=== PATIENT | female | born 1975 | race Caucasian/White ===

== ENCOUNTER 2016-08-03 19:00 | Emergency (ER) | payer MEDICAID, OTHER ==
[~2016-08-03] VITALS: Ht 172.7 cm; Wt 91.0 kg
[~2016-08-03 19:00] MED LIST: GABA-531 PO; GLIP5 PO; METF1000 PO; TNFMISC
[2016-08-03 19:36] LABS: GLUCOSE,POINT OF CARE 412 MG/DL (70-110)
[2016-08-03 19:40] LABS: BASOPHILS % (AUTO) 0.6 % (0.0-2.0); EOSINOPHILS % (AUTO) 1.9 % (1.0-6.0); HEMATOCRIT 39.1 % (36-46); HEMOGLOBIN 13.6 g/dL (12.0-16.0); LYMPHOCYTES # (AUTO) 2.8 K/uL (1.0-4.8); LYMPHOCYTES % (AUTO) 40.4 % (22.0-44.0); MEAN CORPUSCULAR HEMOGLOBIN 31.6 pg (26.0-34.0); MEAN CORPUSCULAR HGB CONC 34.8 G/dL (31.0-37.0); MEAN CORPUSCULAR VOLUME 91 fL (80-100); MONOCYTES # (AUTO) 0.5 K/uL (0.1-1.0); MONOCYTES % (AUTO) 7.4 % (2.0-9.0); NEUTROPHILS # (AUTO) 3.4 K/uL (1.8-7.7); NEUTROPHILS % (AUTO) 49.7 % (40.0-70.0); PLATELET COUNT (AUTO) 183 K/uL (150-450); RED BLOOD CELL COUNT(AUTO) 4.31 MIL/uL (4.00-5.20); RED CELL DISTRIBUTION WIDTH 12.6 % (11.5-14.5); WHITE BLOOD COUNT (AUTO) 6.9 K/uL (4.5-11.0)
[2016-08-03 19:56] LABS: ALANINE AMINOTRANSFERASE 30 U/L (12-78); ALBUMIN 3.1 g/dL (3.4-5.0); ANION GAP 10 mmol/L (8-16); ASPARTATE AMINOTRANSFERASE 19 U/L (15-37); BILIRUBIN,TOTAL 0.6 mg/dL (0.1-1.0); CALCIUM, TOTAL 8.5 mg/dL (8.8-10.5); CARBON DIOXIDE 26 mmol/L (22-29); CHLORIDE 100 mmol/L (98-107); CREATININE 0.72 mg/dL (0.60-1.30); GLOMERULAR FILTR. RATE CALC > 60 mL/min (>60); POTASSIUM 3.5 mmol/L (3.5-5.1); SODIUM SERUM 136 mmol/L (136-145); TOTAL PROTEIN, SERUM 6.8 g/dL (6.4-8.2); UREA NITROGEN, BLOOD 7 mg/dL (7-18)
[2016-08-03] MEDS ORDERED: INSULIN REGULAR, HUMAN 100 UNITS/ML SQ ONE (20:30)
[2016-08-03 22:07] LABS: GLUCOSE COMMENT 1 Doctor Notified; GLUCOSE,POINT OF CARE 432 MG/DL (70-110)
[2016-08-03 22:46] VITALS: BP 125/73
[2016-08-03 23:02] LABS: GLUCOSE COMMENT 1 Doctor Notified; GLUCOSE,POINT OF CARE 355 MG/DL (70-110)
== END 2016-08-03 22:54 | disposition home or self-care (01) ==
LOC: EMS 19:01
DX: E11.65 Type 2 diabetes mellitus with hyperglycemia (principal); R53.1 Weakness; M79.671 Pain in right foot; M79.672 Pain in left foot; E78.00 Pure hypercholesterolemia, unspecified
CPT/HCPCS: 36415; 71010; 80053; 82962; 84484; 85025; 93005; 96372; 99285; J1815

== ENCOUNTER 2016-10-05 16:29 | Emergency (ER) | payer OTHER ==
[~2016-10-05] VITALS: Ht 157.5 cm; Wt 90.0 kg
[2016-10-05 16:47] LABS: GLUCOSE,POINT OF CARE 399 MG/DL (70-110)
[2016-10-05 16:57] LABS: BASOPHILS % (AUTO) 0.6 % (0.0-2.0); HEMATOCRIT 40.4 % (36-46); HEMOGLOBIN 14.2 g/dL (12.0-16.0); LYMPHOCYTES % (AUTO) 36.4 % (22.0-44.0); MEAN CORPUSCULAR HEMOGLOBIN 31.6 pg (26.0-34.0); MEAN CORPUSCULAR VOLUME 90 fL (80-100); MONOCYTES # (AUTO) 0.6 K/uL (0.1-1.0); MONOCYTES % (AUTO) 6.9 % (2.0-9.0); NEUTROPHILS # (AUTO) 4.4 K/uL (1.8-7.7); NEUTROPHILS % (AUTO) 53.1 % (40.0-70.0); PLATELET COUNT (AUTO) 180 K/uL (150-450); RED BLOOD CELL COUNT(AUTO) 4.48 MIL/uL (4.00-5.20); RED CELL DISTRIBUTION WIDTH 11.5 % (11.5-14.5); WHITE BLOOD COUNT (AUTO) 8.2 K/uL (4.5-11.0)
[2016-10-05] MEDS ORDERED: SODIUM CHLORIDE 0.9% 1,000 ML IV ONE (18:00)
[2016-10-05] MEDS ORDERED: INSULIN REGULAR, HUMAN 100 UNITS/ML IVP ONE (18:00)
[2016-10-05 18:06] LABS: ALANINE AMINOTRANSFERASE 28 U/L (12-78); AMYLASE 32 U/L (25-115); ANION GAP 11 mmol/L (8-16); ASPARTATE AMINOTRANSFERASE 17 U/L (15-37); BILIRUBIN,TOTAL 0.5 mg/dL (0.1-1.0); CALCIUM, TOTAL 8.8 mg/dL (8.8-10.5); CARBON DIOXIDE 24 mmol/L (22-29); CHLORIDE 98 mmol/L (98-107); CREATININE 0.69 mg/dL (0.60-1.30); GLOMERULAR FILTR. RATE CALC > 60 mL/min (>60); POTASSIUM 3.8 mmol/L (3.5-5.1); SODIUM SERUM 133 mmol/L (136-145); TOTAL PROTEIN, SERUM 7.1 g/dL (6.4-8.2); UREA NITROGEN, BLOOD 9 mg/dL (7-18)
[2016-10-05 18:13] LABS: GLUCOSE,POINT OF CARE 363 MG/DL (70-110)
[2016-10-05] MEDS ORDERED: BARIUM SULFATE 0.1% SUSPENSION 450 ML BOTTLE PO ONE (19:00)
[2016-10-05 19:01] LABS: APPEARANCE,URINE CLEAR (CLEAR); GLUCOSE, URINE (UA) >=1000 mg/dL (NEGATIVE); KETONES,URINE >=80 mg/dL (NEGATIVE); LEUKOCYTE ESTERASE ,URINE NEGATIVE (NEGATIVE); OCCULT BLOOD,URINE NEGATIVE (NEGATIVE); PH,URINE 5.5 (5.0-8.0); PROTEIN,URINE NEGATIVE (NEGATIVE)
[2016-10-05 19:09] LABS: ADD UA MICROSCOPIC YES
[2016-10-05 19:21] LABS: SQUAMOUS EPITHELIAL CELL,UR Few /LPF (None Seen)
[2016-10-05 19:22] LABS: RBC,URINE 0-2 /HPF (0-2)
[2016-10-05 19:52] LABS: GLUCOSE,POINT OF CARE 235 MG/DL (70-110)
[2016-10-05] MEDS ORDERED: SODIUM CHLORIDE 0.9% 100 ML ONE (20:29)
[2016-10-05] MEDS ORDERED: IOVERSOL 350 MG/ML 100 ML VIAL ONE (20:29)
[2016-10-05 20:42] LABS: GLUCOSE,POINT OF CARE 264 MG/DL (70-110)
[2016-10-05 22:28] VITALS: BP 119/84
[2016-10-05] MEDS ORDERED: IBUPROFEN 600 MG TABLET PO ONE (22:45)
== END 2016-10-05 23:00 | disposition home or self-care (01) ==
LOC: EMS 16:30
DX: R10.31 Right lower quadrant pain (principal); E11.65 Type 2 diabetes mellitus with hyperglycemia; R22.9 Localized swelling, mass and lump, unspecified; E78.00 Pure hypercholesterolemia, unspecified
CPT/HCPCS: 36415; 74177; 80053; 81001; 82150; 82962; 83690; 84703; 85025; 96361; 96374; 99285; J1815; J7030; J7050; Q9967; Z7610